=== PATIENT | male | born 1975 | race Two or more races ===

== ENCOUNTER 2024-05-18 21:50 | Emergency (ER) | payer SELFPAY ==
--- NOTE | 2024-05-18 22:04 | PD.EDADULT ---
ED General RME/HPI General Stated complaint: FALL, AMS Time Seen by Provider: 05/18/24 22:03 Arrival date/time: 05/18/24 21:50 RME / HPI RME / HPI narrative: Chief complaint: seziure like activity, passed out HPI: Patient is a Greek-speaking 48-year-old male with no known past medical history who was brought in by EMS after his significant other witnessed him passing out suddenly at home. Patient has had some flulike symptoms over the last 3 days, with subjective fevers. He was walking around in the living room, when he suddenly lost consciousness and passed out for about 5 minutes. Patient does not have any recollection of this, only witness is his partner. He has never had the symptoms in the past, he does endorse some confusion since the episode. As per partner, patient had some tremors of the upper extremities while he was passed out for about 30 seconds, which she thought could have been seizures. He denies any chills, cough, pain or other systemic symptoms at this time. In the ED, vitals showed blood pressure 90?105 systolic, bradycardia HR 50bpm, sats 98% on RA. Patient appeared comfortable but somnolent, he looked dehydrated, and responded with only one-word answers. He complains of weakness all over his body. Allergies: NKFDA Social history: Marital?Status:?Common law Tobacco?Use:?Denies ETOH?Use:?Socially Drug?Note:?Denies Social?History?Note:?Lives?with? baby mama Family history: Denies any family history of cancers, sudden cardiac or stroke Review of Systems Review of Systems Narrative Review of Systems: GENERAL: Denies fevers/chills or diaphoresis. generalized weakness HEENT: Denies headache or visual/hearing changes. Denies nasal discharge. NEURO: Denies unusual weakness or difficulty speaking. CARDIO: Denies chest pain or palpitations. PULM: Denies SOB, coughing, or wheezing. GI: Denies abdominal pain, N/V/C/D. Reports having BMs URO: Denies burning/itching/pain/urinary changes. MSK/EXT/SKIN: Denies joint/skeletal/muscle pain, issues/changes in upper or lower extremities, itchiness, or superficial pain. PSYCH: Cooperative, pleasant mood & affect. The rest of the review of systems is otherwise negative. ED Exam Narrative Physical exam: Constitutional Alert, oriented x4 and somnolent HEENT Vision grossly intact. Patent nares. Trachea midline. Respiratory Chest normal on inspection and mild congestion on auscultation. Cardiovascular S1 and S2 audible, RRR. No murmurs or carotid bruit. No gross JVD. Abdominal Soft and non tender to palpation in all quadrants. BS + Genitourinary No bladder tenderness, no flank pain. Normal to palpation. Musculoskeletal Extremities tone within normal limits. No LE edema. Neurological CN II - XII grossly intact. Extremity motor and sensation grossly intact. Skin Warm, dry and intact. No apparent lesions. Psychiatric Patient has a good affect, is cooperative. Course Course Course Narrative: CXR: Impression: No pneumothorax pulmonary contusion or hemothorax. Head CT: Impression: Negative for acute hemorrhage, mass effect or midline shift Quality Measures none Orders Category Date Time Status Bedside COVID-19 Antigen Test NOW Care 05/18/24 23:34 Active Bedside Influenza A&B Antigen Test NOW Care 05/19/24 00:[address] Screening NOW Care 05/19/24 01:29 Active EKG (ED ONLY) *Do not use* NOW Care 05/18/24 22:13 Completed Oral Hydration Q1HR Care 05/19/24 00:34 Active Orthostatic Vitals X1 Care 05/19/24 03:[address] chest abdomen pelvis w Stat Exams 05/19/24 01:[address] head/brain wo con Stat Exams 05/18/24 22:05 Completed CXRP [XR chest 1V portable] Stat Exams 05/18/24 22:05 Completed EKG (ED Only) Stat Exams 05/18/24 22:13 Draft Alcohol, Blood Medical Stat Lab 05/18/24 23:26 Completed Ammonia Stat Lab 05/18/24 23:26 Completed CBC Stat Lab 05/18/24 23:26 Completed CMP [Comprehensive Metabolic Panel] Stat Lab 05/18/24 23:26 Completed Drug Screen,Urine Stat Lab 05/19/24 01:20 Completed INR [Prothrombin Time with INR] Stat Lab 05/18/24 23:26 Completed Influenza A & B Rapid Panel Stat Lab 05/19/24 00:03 Stop Req Lactic Acid [Lactate (Lactic Acid)] Stat Lab 05/18/24 23:26 Completed Magnesium Stat Lab 05/18/24 23:26 Completed Procalcitonin Stat Lab 05/18/24 23:26 Completed Urinalysis Stat Lab 05/19/24 01:20 Completed Oseltamivir [Tamiflu] Med 05/19/24 00:00 Discontinued 75 mg PO X1 ONE Sodium Chloride 0.9% 1000 ml [Ns] 1,000 ml Med 05/18/24 23:22 Discontinued IV 999 mls/hr Sodium Chloride 0.9% 1000 ml [Ns] 1,000 ml Med 05/19/24 00:00 Discontinued IV 999 mls/hr Reevaluation(s) Reevaluation #1: 23:15 on 05/18/2024 Mentation improved. Patient responding to questions more clearly. Partner present at bedside. Ordered 1L NS bolus x1 for BP 90-100 systolic and clinically appearing dehydrated Pending lab results and imaging report Reevaluation #2: 03:00 on 05/19/2024 Dehydration improved after 2L IVF bolus. Flu positive , started on Tamiflu Vital Signs Vital signs: Vital Signs Temperature 98.1 F 05/18/24 22:34 Pulse Rate 50 L 05/18/24 22:34 Respiratory Rate 17 05/18/24 22:34 Blood Pressure 80/53 L 05/18/24 22:34 Pulse Oximetry (%) 95 05/18/24 22:34 Oxygen Delivery Method Room Air 05/18/24 22:[address] [facility] Patient data External records reviewed:: None Clinical information provided by:: EMS Social determinants that could affect healthcare access:: none Patient has the following chronic illnesses:: Nil How is presenting disease/condition affected by chronic disease/condition?: no chronic disease Evaluation data The following diagnostics were reviewed and interpreted by me:: lab results, radiology exam(s) and EKG tracing(s) Lab and/or radiology exams considered but not ordered:: CT Chest Interpretation Summary: likely Syncopal episode due to acute dehydration in the setting of recent flu Medications Medications considered but not ordered:: Midodrine Medication administrations:: Medication Administration History Discontinued Medications Sodium Chloride (Ns) 1,000 mls @ 999 mls/hr IV .Q1H1M ONE Stop: 05/19/24 00:22 Last Infusion: 05/19/24 01:22 Dose: Infused Documented By: Admin: 05/19/24 00:20 Dose: 999 mls/hr Documented By: JANICE Sodium Chloride (Ns) 1,000 mls @ 999 mls/hr IV .Q1H1M ONE Stop: 05/19/24 01:00 Last Admin: 05/19/24 00:51 Dose: 999 mls/hr Documented By: JANICE Oseltamivir Phosphate (Oseltamivir 75 Mg Capsule) 75 mg PO X1 ONE Stop: 05/19/24 00:01 Last Admin: 05/19/24 01:22 Dose: 75 mg Documented By: JANICE symptomatic management Consultations Consultation(s) initiated? (list below): No Diagnosis Differential Diagnosis ED Complaint MDM: encephalopathy Most likely diagnosis given after review of the tests above:: Acute dehydration Admission Indicated Admission indicated?: not indicated Explain why admission is indicated or not indicated:: Patient condition improved remarkably after 2L IVF Admission Request Was there a request for admission?: No Disposition Plan Disposition Plan: Discharge Discharge Attestation Discharge Attestation: The patient and all family members were given an opportunity to ask questions and understood the discharge instructions. Discharge instructions specifically effects, indications for sooner follow up or return to the emergency department, and the expected course of current diagnosis. Patient condition: Stable Medical Decision Making MDM Narrative MDM Narrative: Patient is a 48 year old male admitted for altered mentation and syncopal episode after 3 days of fly like symptoms with subjective fevers at home. He was found to be influenza positive and UTox positive for methamphetamine. He was given 1L NS bolus x2 in the ED with Tamiflu 75mg x1. During the ED course, patient condition improved remarkably. He is safe to DC. Discharge plan: - Follow up with your PCP within 1 week form DC - Take Tamiflu 75mg daily for 4 more days - Counseled against drug use - Maintain adequate hydration during viral illness - Return to ED if symptoms worsen Differential Diagnosis Differential Diagnosis: encephalopathy Lab Data 05/18/24 23:26 05/18/24 23:26 Labs: Lab Results 05/18/24 05/19/24 Range/Units 23:26 01:20 WBC 4.6 (3.8-10.6) Thou/mm3 RBC 4.83 (4.50-5.90) Miln/mm3 Hgb 14.7 (13.5-16.0) g/dL Hct 42.5 (41.0-53.0) % MCV 88 (80-100) fL MCH 30.4 (25.0-35.0) pg MCHC 34.6 (31.0-37.0) g/dl RDW Std Deviation 40.9 (35.1-43.9) fL Plt Count 147 (140-440) Thou/mm3 Neut % (Auto) 77 (37-80) % Lymph % (Auto) 12 (10-50) % [place] % (Auto) 11 (0-12) % Eos % (Auto) 0 (0-10) % Baso % (Auto) 0 (0-2.5) % Neut # (Auto) 3.5 (1.8-7.7) Thou/mm3 Lymph # (Auto) 0.6 L (1.0-4.8) Thou/mm3 [place] # (Auto) 0.5 (0.0-0.8) Thou/mm3 Eos # (Auto) 0.0 (0.0-0.5) Thou/mm3 Baso # (Auto) 0.0 (0.0-0.2) Thou/mm3 Immature Gran # (Auto) 0.02 H (0.00-0.00) Thou/mm3 Absolute Nucleated RBC 0.00 (0.00-0.00) Thou/mm3 Immature Gran % 0 (0-0) % Nucleated RBC % 0 (0) /100 WBC PT 12.5 H (9.0-12.2) Seconds INR 1.2 (0.9-1.3) Sodium 139 (136-145) mMol/L Potassium 3.7 (3.4-5.1) mMol/L Chloride 107 (98-107) mMol/L Carbon Dioxide 23.6 (20.0-31.0) mMol/L Anion Gap 8 (7-16) BUN 12 (9-23) mg/dL Creatinine 1.2 (0.6-1.3) mg/dL Estim Creat Clear Calc 74.4 (>60) mL/min eGFR > 60 (60 - ) See Note BUN/Creatinine Ratio 10 L (12-20) Ratio Glucose 141 H (74-106) mg/dL Calculated Osmolality 279 (275-295) Lactic Acid 0.9 (0.4-2.0) mMol/L Calcium 9.0 (8.3-10.6) mg/dL Corrected Calcium 9.0 (8.5-10.1) mg/dL Magnesium 2.1 (1.6-2.6) mg/dL Total Bilirubin 0.4 (0.3-1.2) mg/dL AST 27 (0-34) U/L ALT 19 (10-49) U/L Alkaline Phosphatase 64 (46-116) U/L Ammonia < 10 L (11-32) uMol/L Total Protein 7.0 (5.7-8.2) gm/dL Albumin 4.1 (3.5-5.0) gm/dL Globulin 2.9 (2.3-3.5) gm/dL Albumin/Globulin Ratio 1.4 (1.2-2.2) Procalcitonin 0.14 (0.0-0.49) ng/ml Ur Collection Type Clean Catch Urine Color Lt-Yellow (Lt Yel-Yel) Urine Clarity Clear (Clear/Hazy) Urine pH 6.0 (5.0-7.0) Ur Specific [place] 1.012 (1.001-1.035) Urine Protein Trace (Neg - Trace) Urine Glucose (UA) Negative (Negative) Urine Ketones 1+ A (Negative) Urine Blood Negative (Negative) Urine Nitrite Negative (Negative) Urine Bilirubin Negative (Negative) Urine Urobilinogen (Auto) Negative (0.0-1.0) mg/dL Ur Leukocyte Esterase Negative (Negative) Urine RBC 1 (0-3) /hpf Urine WBC 1 (0-5) /hpf Ur Squamous Epith Cells 0 (0-5) /hpf Urine Bacteria None (None) Hyaline Casts 1 (0-1) /hpf Urine Opiates Screen Negative (Negative) Urine Fentanyl Screen Negative (Negative) Ur Barbiturates Screen Negative (Negative) U Amphetamin/Meth Scrn Positive A (Negative) U Benzodiazepines Scrn Negative (Negative) U Cocaine Metab Screen Negative (Negative) U Marijuana (THC) Screen Negative (Negative) Ethyl Alcohol < 3.0 (0-10.0) mg/dL Discharge Plan Plan Patient Disposition: HOME (Self Care) Patient condition on transfer: Stable Prescriptions/Referrals Referrals: No Primary/Family,Physician [Primary Care Provider] - In 1 week Problem List Clinical Impression: Acute dehydration Patient/Caregiver Discharge Instructions Discharge Activity: resume usual activities Education Materials: ED Dehydration (Adult) Print Language: Greek Stand Alone Forms: Natasha Award Info., Patient Portal Info Letter
--- NOTE | 2024-05-18 22:05 | XR_ITS ---
Examination: AP chest single view Technique one AP portable upright chest single view Exam date and time: May 18, 2024 11:12 PM Indications: Ground-level fall today with injury to the chest, chest pain. Findings: Normal heart size. No pneumothorax pulmonary contusion or hemothorax. Clavicles ribs appear intact. Impression: No pneumothorax pulmonary contusion or hemothorax.
--- NOTE | 2024-05-18 22:05 | XR_ITS ---
Examination: CT brain head without contrast. 2-D sagittal coronal reconstructions Date and time of exam:May 18, 2024 1059 hrs. Indications: Altered mental status today CTDI: vol (mGy): 48.9 DLP: (mGycm):961 Technique: Multiple CT axial sections of the brain have been obtained, 5 mm slice thickness. Contrast has not been administered. 2-D sagittal, coronal reconstructions have been obtained Low dose protocols were performed. One or more of the following dose reduction techniques were used; automated exposure control, adjustment of the mA and/or KV according to patient size, use of iterative reconstruction technique. Findings: No significant ventricular enlargement. Intra-axial or extra-axial hemorrhage density is not seen. No mass effect or midline shift Basal cisterns are not remarkable. Fourth ventricle is midline. Cranial vault intact. Impression: Negative for acute hemorrhage, mass effect or midline shift
--- NOTE | 2024-05-18 22:13 | EKG_ITS ---
[facility] (Formerly [facility]) Test Date: 2024-05-18 Pat Name: JORDYN WARNERODepartment: Room: - Gender: Male Guide Tour: : 1975 Requested By: Fred Sanz Order Number: [id number] Reading MD: Fred Sanz Measurements Intervals Arvin Rate: 50 P: 41 NV: 172 QRS: 34 QRSD: 111 T: 26 QT: 370 QTc: 338 Interpretive Statements SINUS BRADYCARDIA MODERATE INTRAVENTRICULAR CONDUCTION DELAY [110+ ms QRS DURATION] NONSPECIFIC T-WAVE ABNORMALITY No previous ECG available for comparison /store/S0/[id number]
[2024-05-18 22:34] VITALS: BP 80/53; BP 84/55; PULSE 50; RESP 17; TEMP 36.7; O2SAT 95
[2024-05-18 22:48] VITALS: BP 96/59; PULSE 54; RESP 18; TEMP 36.6; O2SAT 93
[2024-05-18 22:57] VITALS: O2SAT 99
[2024-05-18 23:05] VITALS: PULSE 51; RESP 18; O2SAT 100; BMI 27.4
--- NOTE | 2024-05-18 23:30 | PC.NURSE ---
While performing orthostatic VS. pt not dizzy lying supine. became dizzy sitting up. Had near syncope when standing. systolic bp 71 standing. MD aware.
[2024-05-18 23:42] LABS: Lactate (Lactic Acid) 0.9 mMol/L (0.4-2.0)
[2024-05-18 23:57] LABS: Basophils % (Auto) 0 % (0-2.5); Eosinophils % (Auto) 0 % (0-10); Hematocrit 42.5 % (41.0-53.0); Hemoglobin 14.7 g/dL (13.5-16.0); Immature Granulocytes % (Auto) 0 % (0-0); Immature Granulocytes Auto 0.02 Thou/mm3 (0.00-0.00); Lymphocytes # (Auto) 0.6 Thou/mm3 (1.0-4.8); Lymphocytes % (Auto) 12 % (10-50); Mean Corpuscular HGB Conc 34.6 g/dl (31.0-37.0); Mean Corpuscular Hemoglobin 30.4 pg (25.0-35.0); Mean Corpuscular Volume 88 fL (80-100); Monocytes # (Auto) 0.5 Thou/mm3 (0.0-0.8); Monocytes % (Auto) 11 % (0-12); Neutrophils # (Auto) 3.5 Thou/mm3 (1.8-7.7); Neutrophils % (Auto) 77 % (37-80); Nucleated Red Blood Cell % 0 /100 WBC (0); Platelet Count 147 Thou/mm3 (140-440); RDW Standard Deviation 40.9 fL (35.1-43.9); Red Blood Count 4.83 Miln/mm3 (4.50-5.90); White Blood Count 4.6 Thou/mm3 (3.8-10.6)
[2024-05-19 00:03] LABS: INR 1.2 (0.9-1.3); Prothrombin Time 12.5 Seconds (9.0-12.2)
[2024-05-19 00:05] VITALS: BP 102/62; BP 71/0; BP 96/56; PULSE 48; PULSE 52; PULSE 53
[2024-05-19] MEDS: SODIUM CHLORIDE 0.9% 1000 ML 1,000 ML 999 ML IV ×2 (00:20→00:51)
[2024-05-19 00:29] LABS: Alanine Aminotransferase 19 U/L (10-49); Albumin, Serum 4.1 gm/dL (3.5-5.0); Albumin/Globulin Ratio 1.4 (1.2-2.2); Alcohol, Blood Medical < 3.0 mg/dL (0-10.0); Alkaline Phosphatase 64 U/L (46-116); Ammonia < 10 uMol/L (11-32); Anion Gap 8 (7-16); Aspartate Amino Transferase 27 U/L (0-34); BUN/Creatinine Ratio 10 Ratio (12-20); Bilirubin,Total 0.4 mg/dL (0.3-1.2); Blood Urea Nitrogen 12 mg/dL (9-23); Carbon Dioxide 23.6 mMol/L (20.0-31.0); Chloride 107 mMol/L (98-107); Creatinine (Component) 1.2 mg/dL (0.6-1.3); Estimated Creatinine Clearance 74.4 mL/min (>60); Globulin 2.9 gm/dL (2.3-3.5); Glucose 141 mg/dL (74-106); Magnesium 2.1 mg/dL (1.6-2.6); Osmolality,Calculated 279 (275-295); Potassium 3.7 mMol/L (3.4-5.1); Procalcitonin 0.14 ng/ml (0.0-0.49); Sodium 139 mMol/L (136-145); eGFR > 60 See Note
[2024-05-19] MEDS: OSELTAMIVIR 75 MG CAPSULE PO (01:22)
[2024-05-19 01:56] LABS: Collection Type, Urine Clean Catch; Squamous Epithelial Cell,Urine 0 /hpf (0-5)
[2024-05-19 02:02] LABS: Bilirubin,Urine Negative (Negative); Blood,Urine Negative (Negative); Clarity,Urine Clear (Clear/Hazy); Color,Urine Lt-Yellow (Lt Yel-Yel); Glucose, Urine Negative (Negative); Hyaline Casts,Urine 1 /hpf (0-1); Ketones,Urine 1+ (Negative); Leukocyte Esterase,Urine Negative (Negative); Nitrite,Urine Negative (Negative); Protein,Urine Trace (Neg - Trace); RBC,Urine 1 /hpf (0-3); Specific Gravity,Urine 1.012 (1.001-1.035); Urobilinogen,Urine Negative mg/dL (0.0-1.0); WBC,Urine 1 /hpf (0-5)
[2024-05-19 02:07] LABS: Amphetamine/Methamp Scrn,U Positive (Negative); Barbiturate Screen,Urine Negative (Negative); Benzodiazepines Screen,Urine Negative (Negative); Benzoylecgonine Screen, Ur Negative (Negative); Fentanyl Screen,Urine Negative (Negative); Opiate Screen,Urine Negative (Negative); THC Screen,Urine Negative (Negative)
[2024-05-19 02:33] VITALS: BP 116/72; PULSE 61; RESP 20; TEMP 36.7; O2SAT 95
[2024-05-19 03:22] VITALS: BP 122/79; PULSE 57; RESP 20; TEMP 36.9; O2SAT 99
[2024-05-19 05:00] VITALS: BP 128/77; PULSE 58; RESP 18; TEMP 36.8
--- NOTE | 2024-05-19 05:00 | PC.NURSE ---
After 2L NS , pt feeling much better. BP has returned to WNL. pt ambulating without dizziness.
== END 2024-05-19 05:25 | disposition home or self-care (01) ==
PROVIDERS: Emergency Provider Student in an Organized Health Care Education/Training Program
DX: E86.0 Dehydration (principal); R41.82 Altered mental status, unspecified; R00.1 Bradycardia, unspecified; S29.9XXA Unspecified injury of thorax, initial encounter; W18.30XA Fall on same level, unspecified, initial encounter
CPT/HCPCS: 36415; 70450; 71045; 80053; 80307; 80320; 81001; 82140; 83605; 83735; 84145; 85025; 85610; 87400; 87502; 87811; 93005; 99284; J7030; A9270; G0480